=== PATIENT | female | born 1970 | race African-American/Black ===

== ENCOUNTER 2019-10-31 14:53 | Inpatient (IN) | payer OTHER ==
[2019-10-31 17:56] VITALS: BMI 23.8
--- NOTE | 2019-10-31 18:50 | HP ---
COWS - Scale Resting Pulse: 1= [place] 81-100 Sweatin= Chills/Flushing Restless Observation: 3= Extraneous Movement Pupil Size: 0= Normal to Room Light Bone or Joint Aches: 0= None Runny Nose/ Eye Tearin= Runny Nose/Eyes GI Upset > 30mins: 0= None Tremor Observation: 0= None Yawning Observation: 2= >3x During Session Anxiety or Irritability: 2=Irritable/Anxious Goose Flesh Skin: 0=Smooth Skin COWS Score: 11 CIWA Score - Admission Criteria OAS Guidelines: Admission for Medically Managed Detox: Requires at least one of the followin. CIWA greater than 12 2. Seizures within the past 24 hours 3. Delirium tremens within the past 24 hours 4. Hallucinations within the past 24 hours 5. Acute intervention needed for co occurring medical disorder 6. Acute intervention needed for co occurring psychiatric disorder 7. Severe withdrawal that cannot be handled at a lower level of care (continued vomiting, continued diarrhea, abnormal vital signs) requiring intravenous medication and/or fluids 8. Admission ROS [facility] Allergies/Adverse Reactions: Allergies Allergy/AdvReac Type Severity Reaction Status Date / Time No Known Allergies Allergy Verified 10/31/19 17:44 History of Present Illness: This report was requested by: Nori Nascimento | Reference #: [id number] Others' Prescriptions Patient Name: Rula Aguila Date: 1970 Address: [address] [place] [address] Sex: Female Rx Written Rx Dispensed Drug Quantity Days Supply Prescriber Name 05/17/2019 05/17/2019 zolpidem tartrate 10 mg tablet 30 30 Krishna Delgado MD Patient Name: Rula Aguila Date: 1970 Address: [address] [place] [address] Sex: Female Rx Written Rx Dispensed Drug Quantity Days Supply Prescriber Name 11/12/2018 01/28/2019 dronabinol 5 mg capsule 60 30 Alee Booth MD 12/28/2018 12/28/2018 zolpidem tartrate 10 mg tablet 30 30 Alee Booth MD 11/12/2018 12/08/2018 dronabinol 5 mg capsule 60 30 Alee Booth MD 11/12/2018 11/12/2018 dronabinol 5 mg capsule 60 30 Aele Booth MD 11/12/2018 11/12/2018 zolpidem tartrate 10 mg tablet 30 30 Alee Booth MD pt here requesting detox from heroin use , reports use since age 15 , longest sobriety 6 years while in residential program / penitentiary 18 years ago , in [facility] x 4 years [facility] , stopped going 2 years ago , MDD 180 mg , current daily use 4-5 bags/day via inhalation ,denies IV use, denies OD , latest use this morning prior to coming to facility cocaine : 3-4 /day via smoking, denies IV , latest use today tobacco : 10/22 ppd etoh : occasional use . PMHX : HIV + dx 26 yrs ago , CD4 " I don't think it's too good now , I was in the hospital for shingles 10/10/19 " claims compliance w/ HAART latest use 2 days ago states latest rx from Urgent Care , planning to go to clinic @ [facility] , COPD on Abuterol & Prednisione , asthma , DM 1 since age 26 Lantus 18 units hs per pt , did not bring meds, and does not recall name of pharmacy where she goes for it which is not the same pharmacy asa her other meds, thus could not be verified. depression/ anxiety denies SI / HI PSHx : C-sx , irais , ITZ partial for cervical cancer SHX : SSI , lives in SRO , denies legal issues , 3 adult children 34, 33, 20 , 7 g.k. A & W Exam Limitations: Clinical Condition - Ebola screening Have you traveled outside of the country in the last 21 days: No Have you had contact with anyone from an Ebola affected area: No - Review of Systems Constitutional: Unintentional Wgt. Loss EENT: reports: Tearing, Nose Congestion, Other (glasses , HZV R eye 10/10/19 , upper and lower dentures) Respiratory: reports: See HPI, SOB with Exertion Cardiac: reports: No Symptoms Reported GI: reports: No Symptoms Reported : reports: No Symptoms Reported Neuro: reports: No Symptoms reported Endocrine: reports: See HPI Hematology: reports: No Symptoms Reported Psychiatric: reports: Orientated x3, Agitated, Anxious, Depressed Patient History - Smoking Cessation Smoking history: Current every day smoker Have you smoked in the past 12 months: Yes Hx Chewing Tobacco Use: No Initiated information on smoking cessation: Yes 'Breaking Loose' booklet given: 10/31/19 - Substances abused Alcohol Substance route: Oral Frequency: Daily Amount used: liquor-1 pints,beer-3 can(16oz) Age of first use: 5 Date of last use: 10/31/19 Heroin Substance route: Inhalation Frequency: Daily Amount used: 5 bags Age of first use: 14 Date of last use: 10/31/19 Crack Substance route: Smoking Frequency: Daily Amount used: 6 dimes Age of first use: 15 Date of last use: 10/31/19 Admission Physical Exam BHS - Vital Signs Vital Signs: Vital Signs - 24 hr 10/31/19 17:50 Temperature 99.6 F Pulse Rate 97 H Respiratory 20 Rate Blood Pressure 117/66 - Physical General Appearance: Yes: Mild Distress, Cachetic, Thin, Anxious HEENTM: Yes: EOMI, Normocephalic, Nasal Congestion, Rhinorrhea, Muffled/Hoarse Voice, Other (upper and lower dentures) Respiratory: Yes: Chest Non-Tender, Lungs Clear, Normal Breath Sounds, No Respiratory Distress, No Accessory Muscle Use Neck: Yes: No masses,lesions,Nodules, Trachea in good position Cardiology: Yes: Regular Rhythm, Regular Rate, S1, S2, Tachycardia Abdominal: Yes: Normal Bowel Sounds, Non Tender, Soft, Other (skin folds from rapid weight loss 100 lbs in 2 mo per pt 2/2 DOM) Musculoskeletal: Yes: full range of Motion, Gait Steady Extremities: Yes: Normal Range of Motion, Non-Tender, Other (LE varicosities) Neurological: Yes: Alert, Depressed Affect Integumentary: Yes: Warm, Rash (joyce UE / LE excoriations.), Other (beard[perficial excoriations scarring, prior self- injury scars left forearm) - Diagnostic (1) Opioid dependence Current Visit: Yes Status: Chronic Qualifiers: Substance use status: in withdrawal Qualified Code(s): F11.23 - Opioid dependence with withdrawal (2) Cocaine dependence Current Visit: Yes Status: Chronic Qualifiers: Substance use status: uncomplicated Qualified Code(s): F14.20 - Cocaine dependence, uncomplicated Breathalyzer - Breathalyzer Breathalyzer: 0.021 Urine Drug Screen - Test Device Lot number: [id number] Expiration date: 05/18/21 - Control Is test valid?: Yes - Results Drug screen NEGATIVE: No Urine drug screen results: CHENCHO-Cocaine, FEN-Fentanyl, MOP-Opiates Inpatient Rehab Admission - Rehab Decision to Admit Inpatient rehab admission?: No
[2019-10-31] MEDS ORDERED: ALBUTEROL SO4 HFA INHALER IH PRN (18:57)
[2019-10-31] MEDS ORDERED: BISMUTH SUBSALICYLATE 524 MG/30 ML UD PO PRN (18:59)
[2019-10-31] MEDS ORDERED: hydrOXYzine PAMOATE 25 MG CAPSULE (FP) PO PRN (18:59)
[2019-10-31] MEDS ORDERED: ACETAMINOPHEN 325 MG TABLET (FP) PO PRN ×2 (18:59)
[2019-10-31] MEDS ORDERED: MELATONIN 5 MG TABLETS PO PRN (18:59)
[2019-10-31] MEDS ORDERED: MAG HYDROX/AL HYDROX/SIMETH 30 ML UNIT-DOSE CUP PO PRN (18:59)
[2019-10-31] MEDS ORDERED: IBUPROFEN 400 MG TABLET (FP) PO PRN (18:59)
[2019-10-31] MEDS ORDERED: MAGNESIUM HYDROX 2400MG/30ML ORAL SUSPENSION 30 ML CUP PO PRN (18:59)
[2019-10-31] MEDS ORDERED: MENTHOL/PHENOL 1 EACH UD MM PRN (18:59)
[2019-10-31] MEDS ORDERED: MAGNESIUM CITRATE 300 ML BOTTLE PO PRN (18:59)
[2019-10-31] MEDS ORDERED: cloNIDine HCL 0.1 MG TABLET PO PRN (19:00)
[2019-10-31] MEDS ORDERED: METHADONE HCL 10 MG TABLET (FOR DETOX USE ONLY) PO ONE (20:00)
[2019-10-31] MEDS: THIAMINE HCL 100 MG TABLET (FP) PO SCH (21:05)
[2019-11-01 09:48] LABS: HEMATOCRIT 32.1 % (32.4-45.2); HEMOGLOBIN 10.4 GM/dL (10.7-15.3); MCH 27.4 pg (25.7-33.7); MCHC 32.3 g/dl (32.0-36.0); MEAN CELL VOLUME 84.9 fl (80-96); MEAN PLT VOLUME 8.5 fl (7.5-11.1); PLATELET COUNT 212 K/MM3 (134-434); RBC 3.78 M/mm3 (3.60-5.2); RDW 16.2 % (11.6-15.6); WHITE BLOOD COUNT 3.5 K/mm3 (4.0-10.0)
[2019-11-01] MEDS ORDERED: METHADONE HCL 5 MG TABLET (FOR DETOX USE ONLY) PO ONE ×2 (10:00→13:15)
[2019-11-01 10:17] LABS: ALBUMIN 2.7 g/dl (3.4-5.0); BILIRUBIN,TOTAL 0.1 mg/dL (0.2-1); BLOOD UREA NITROGEN 23.7 mg/dL (7-18); CALCIUM 8.1 mg/dL (8.5-10.1); CREATININE 0.7 mg/dL (0.55-1.3); POTASSIUM 3.9 mmol/L (3.5-5.1); TOT PROT 8.2 g/dl (6.4-8.2)
[2019-11-01] MEDS: HYDROCHLOROTHIAZIDE 12.5 MG CAPSULE (FP) PO SCH (10:25)
[2019-11-01] MEDS: ENALAPRIL MALEATE 2.5 MG TABLET PO SCH (10:25)
[2019-11-01] MEDS: BICTEGRAV/EMTRICIT/TENOFOV (BIKTARVY) 50-200-25 MG TABLET PO SCH (10:25)
[2019-11-01] MEDS: PRENATAL VITAMINS W/ FOLIC ACID TABLET (FP) PO SCH (10:25)
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
[2019-11-01] MEDS: ESCITALOPRAM OXALATE 20 MG TABLET PO SCH (11:28)
--- NOTE | 2019-11-01 12:04 | PN ---
BHS COWS - Scale Resting Pulse: 1= [place] 81-100 Sweatin= Chills/Flushing Restless Observation: 1= Difficult to Sit Still Pupil Size: 0= Normal to Room Light Bone or Joint Aches: 2= Severe Diffuse Aches Runny Nose/ Eye Tearin= Runny Nose/Eyes GI Upset > 30mins: 0= None Tremor Observation of Outstretched Hands: 1= Tremor [place], Not Seen Yawning Observation: 2= >3x During Session Anxiety or Irritability: 1=Feels Anxious/Irritable Goose Flesh Skin: 0=Smooth Skin COWS Score: 11 S Progress Note (SOAP) Subjective: chills sweats irritable body aches interrupted sleep poor appetite itchy/watery eye Objective: 11/01/19 12:04 Vital Signs Temperature 97.9 F 11/01/19 05:00 Pulse Rate 82 11/01/19 05:00 Respiratory Rate 16 11/01/19 05:00 Blood Pressure 151/77 11/01/19 05:00 O2 Sat by Pulse Oximetry (%) Laboratory Tests 10/31/19 11/01/19 11/01/19 18:55 06:11 07:20 WBC 3.5 L RBC 3.78 Hgb 10.4 L Hct 32.1 L MCV 84.9 MCH 27.4 MCHC 32.3 RDW 16.2 H Plt Count 212 MPV 8.5 Sodium Potassium Chloride Carbon Dioxide Anion Gap BUN Creatinine Est GFR (CKD-EPI)AfAm Est GFR (CKD-EPI)NonAf POC Glucometer 83 Random Glucose Calcium Total Bilirubin AST ALT Alkaline Phosphatase Total Protein Albumin POC Urine HCG, Qual Negative RPR Titer 11/01/19 11/01/19 07:20 07:20 WBC RBC Hgb Hct MCV MCH MCHC RDW Plt Count MPV Sodium 136 Potassium 3.9 Chloride 105 Carbon Dioxide 30 Anion Gap 1 L BUN 23.7 H Creatinine 0.7 Est GFR (CKD-EPI)AfAm 117.91 Est GFR (CKD-EPI)NonAf 101.74 POC Glucometer Random Glucose 118 H Calcium 8.1 L Total Bilirubin 0.1 L AST 95 H ALT 84 H Alkaline Phosphatase 166 H Total Protein 8.2 Albumin 2.7 L POC Urine HCG, Qual RPR Titer Nonreactive mild anemia wbc 3.5; pt is HIV elevated BUN mild elevated liver enzymes all labs results noted aaox3 ambulating no acute distress Assessment: 11/01/19 12:06 withdrawals right eye redness, itchy pt keep rubbing/ encouraged not to rub eye; will order eye drops Plan: continue detox nephcon A ordered iron supplement ensure plus bid increase fluids repeat labs
[2019-11-01] MEDS ORDERED: METHADONE HCL 10 MG TABLET (FOR DETOX USE ONLY) PO ONE (12:44)
--- NOTE | 2019-11-01 12:44 | EKG ---
Test Reason : Blood Pressure : / mmHG Vent. Rate : 084 BPM Atrial Rate : 084 BPM P-R Int : 162 ms QRS Dur : 098 ms QT Int : 384 ms P-R-T Axes : 071 049 070 degrees QTc Int : 453 ms NORMAL SINUS RHYTHM MODERATE VOLTAGE CRITERIA FOR LVH, MAY BE NORMAL VARIANT Confirmed by MD NEY, GABI ([id number]) on 11/01/2019 12:44:18 PM Referred By: Confirmed By:GABI BREWSTER MD
--- NOTE | 2019-11-01 12:44 | PN ---
S CIWA - CIWA Score Nausea/Vomitin-No Nausea/No Vomiting Muscle Tremors: 4-Moderate,w/Arms Extend Anxiety: 4-Mod. Anxious/Guarded Agitation: 4-Moderately Restless Paroxysmal Sweats: 3 Orientation: 0-Oriented Tacttile Disturbances: 0-None Auditory Disturbances: 0-None Visual Disturbances: 0-None Headache: 0-None Present CIWA-Ar Total Score: 15 BHS Progress Note (SOAP) Subjective: I drink alot and i need something for the withdrawals the methadone dose is not enough to detox with. Objective: 11/01/19 12:42 Vital Signs Temperature 97.9 F 11/01/19 05:00 Pulse Rate 82 11/01/19 05:00 Respiratory Rate 16 11/01/19 05:00 Blood Pressure 151/77 11/01/19 05:00 O2 Sat by Pulse Oximetry (%) aaox3 ambulating no acute distress Assessment: 11/01/19 12:42 withdrawals Plan: will start pt on librium taper methadone will be increased by 5mg today therefore she will receive 20mg today, 15mg tomorrow, 10mg the following day and 5mg final dose.
[2019-11-01] MEDS ORDERED: chlordiazePOXIDE HCL 10 MG CAPSULE PO PRN (12:48)
[2019-11-01] MEDS: chlordiazePOXIDE HCL 25 MG CAPSULE PO SCH ×2 (13:25→21:24)
[2019-11-01] MEDS: NAPHAZOLINE/PHENIRAMINE OPHTHALMIC 15 ML BOTTLE OD SCH ×3 (13:27→21:23)
[2019-11-01] MEDS ORDERED: NAPHAZOLINE 0.1% OPHTHALMIC SOLUTION 15 ML BOTTLE OD SCH (14:00)
[2019-11-01] MEDS: FERROUS SO4 325 MG TABLET (FP) PO SCH (17:30)
[2019-11-01] MEDS: THIAMINE HCL 100 MG TABLET (FP) PO SCH (21:24)
[2019-11-01] MEDS ORDERED: SUVOREXANT 10 MG TABLET PO PRN (22:00)
[2019-11-02] MEDS: chlordiazePOXIDE HCL 25 MG CAPSULE PO SCH ×3 (07:24→22:47)
[2019-11-02] MEDS: FERROUS SO4 325 MG TABLET (FP) PO SCH ×3 (07:24→18:30)
[2019-11-02] MEDS ORDERED: METHADONE HCL 10 MG TABLET (FOR DETOX USE ONLY) PO ONE (10:00)
[2019-11-02] MEDS ORDERED: METHADONE HCL 5 MG TABLET (FOR DETOX USE ONLY) PO ONE (10:00)
[2019-11-02] MEDS: PRENATAL VITAMINS W/ FOLIC ACID TABLET (FP) PO SCH (10:19)
[2019-11-02] MEDS: BICTEGRAV/EMTRICIT/TENOFOV (BIKTARVY) 50-200-25 MG TABLET PO SCH (10:20)
[2019-11-02] MEDS: ESCITALOPRAM OXALATE 20 MG TABLET PO SCH (10:20)
[2019-11-02] MEDS: HYDROCHLOROTHIAZIDE 12.5 MG CAPSULE (FP) PO SCH (10:20)
[2019-11-02] MEDS: ENALAPRIL MALEATE 2.5 MG TABLET PO SCH (10:21)
[2019-11-02] MEDS: NAPHAZOLINE/PHENIRAMINE OPHTHALMIC 15 ML BOTTLE OD SCH ×4 (10:21→22:49)
--- NOTE | 2019-11-02 11:21 | PN ---
[facility] CIWA - CIWA Score Nausea/Vomitin-No Nausea/No Vomiting Muscle Tremors: 2 Anxiety: 2 Agitation: 3 Paroxysmal Sweats: 2 Orientation: 0-Oriented Tacttile Disturbances: 0-None Auditory Disturbances: 0-None Visual Disturbances: 0-None Headache: 0-None Present CIWA-Ar Total Score: 9 BHS COWS - Scale Resting Pulse: 1= [place] 81-100 Sweatin= Chills/Flushing Restless Observation: 1= Difficult to Sit Still Pupil Size: 0= Normal to Room Light Bone or Joint Aches: 1= Mild Discomfort Runny Nose/ Eye Tearin= Nasal Congestion GI Upset > 30mins: 0= None Tremor Observation of Outstretched Hands: 1= Tremor [place], Not Seen Yawning Observation: 1= 1-2x During Session Anxiety or Irritability: 2=Irritable/Anxious Goose Flesh Skin: 0=Smooth Skin COWS Score: 9 BHS Progress Note (SOAP) Subjective: sweats restless body aches interrupted sleep agitation Objective: 11/02/19 11:30 Vital Signs Temperature 97.5 F L 11/02/19 06:00 Pulse Rate 82 11/02/19 06:00 Respiratory Rate 18 11/02/19 06:00 Blood Pressure 150/85 11/02/19 06:00 O2 Sat by Pulse Oximetry (%) Laboratory Tests 10/31/19 11/01/19 11/01/19 18:55 06:11 07:20 WBC 3.5 L RBC 3.78 Hgb 10.4 L Hct 32.1 L MCV 84.9 MCH 27.4 MCHC 32.3 RDW 16.2 H Plt Count 212 MPV 8.5 Sodium Potassium Chloride Carbon Dioxide Anion Gap BUN Creatinine Est GFR (CKD-EPI)AfAm Est GFR (CKD-EPI)NonAf POC Glucometer 83 Random Glucose Calcium Total Bilirubin AST ALT Alkaline Phosphatase Total Protein Albumin POC Urine HCG, Qual Negative RPR Titer 11/01/19 11/01/19 11/01/19 07:20 07:20 16:49 WBC RBC Hgb Hct MCV MCH MCHC RDW Plt Count MPV Sodium 136 Potassium 3.9 Chloride 105 Carbon Dioxide 30 Anion Gap 1 L BUN 23.7 H Creatinine 0.7 Est GFR (CKD-EPI)AfAm 117.91 Est GFR (CKD-EPI)NonAf 101.74 POC Glucometer 123 Random Glucose 118 H Calcium 8.1 L Total Bilirubin 0.1 L AST 95 H ALT 84 H Alkaline Phosphatase 166 H Total Protein 8.2 Albumin 2.7 L POC Urine HCG, Qual RPR Titer Nonreactive 11/02/19 07:23 WBC RBC Hgb Hct MCV MCH MCHC RDW Plt Count MPV Sodium Potassium Chloride Carbon Dioxide Anion Gap BUN Creatinine Est GFR (CKD-EPI)AfAm Est GFR (CKD-EPI)NonAf POC Glucometer 105 Random Glucose Calcium Total Bilirubin AST ALT Alkaline Phosphatase Total Protein Albumin POC Urine HCG, Qual RPR Titer labs noted aaox3 ambulating no acute distress Assessment: 11/02/19 11:31 withdrawals Plan: continue detox increase fluids glucerna with meals ordered
[2019-11-02] MEDS: THIAMINE HCL 100 MG TABLET (FP) PO SCH (22:47)
[2019-11-03] MEDS ORDERED: chlordiazePOXIDE 5 MG CAPSULE PO SCH (05:00)
[2019-11-03] MEDS ORDERED: METHADONE HCL 5 MG TABLET (FOR DETOX USE ONLY) PO ONE (06:00)
[2019-11-03] MEDS: FERROUS SO4 325 MG TABLET (FP) PO SCH (07:23)
[2019-11-03] MEDS: BICTEGRAV/EMTRICIT/TENOFOV (BIKTARVY) 50-200-25 MG TABLET PO SCH (09:31)
--- NOTE | 2019-11-03 09:50 | DS ---
[facility] Detox Discharge Summary Admission Date: 10/31/19 Discharge Date: 11/03/19 - History Present History: Alcohol Dependence, Cocaine Dependence, Opioid Dependence - Physical Exam Results Vital Signs: Vital Signs Temperature 98.1 F 11/03/19 06:00 Pulse Rate 88 11/03/19 06:00 Respiratory Rate 16 11/03/19 06:00 Blood Pressure 106/64 11/03/19 06:00 O2 Sat by Pulse Oximetry (%) Pertinent Admission Physical Exam Findings: Vital Signs Temperature 98.1 F 11/03/19 06:00 Pulse Rate 88 11/03/19 06:00 Respiratory Rate 16 11/03/19 06:00 Blood Pressure 106/64 11/03/19 06:00 O2 Sat by Pulse Oximetry (%) Laboratory Tests 10/31/19 11/01/19 11/01/19 18:55 06:11 07:20 WBC 3.5 L RBC 3.78 Hgb 10.4 L Hct 32.1 L MCV 84.9 MCH 27.4 MCHC 32.3 RDW 16.2 H Plt Count 212 MPV 8.5 Sodium Potassium Chloride Carbon Dioxide Anion Gap BUN Creatinine Est GFR (CKD-EPI)AfAm Est GFR (CKD-EPI)NonAf POC Glucometer 83 Random Glucose Calcium Total Bilirubin AST ALT Alkaline Phosphatase Total Protein Albumin POC Urine HCG, Qual Negative RPR Titer 11/01/19 11/01/19 11/01/19 07:20 07:20 16:49 WBC RBC Hgb Hct MCV MCH MCHC RDW Plt Count MPV Sodium 136 Potassium 3.9 Chloride 105 Carbon Dioxide 30 Anion Gap 1 L BUN 23.7 H Creatinine 0.7 Est GFR (CKD-EPI)AfAm 117.91 Est GFR (CKD-EPI)NonAf 101.74 POC Glucometer 123 Random Glucose 118 H Calcium 8.1 L Total Bilirubin 0.1 L AST 95 H ALT 84 H Alkaline Phosphatase 166 H Total Protein 8.2 Albumin 2.7 L POC Urine HCG, Qual RPR Titer Nonreactive 11/02/19 11/02/19 11/03/19 07:23 16:30 06:18 WBC RBC Hgb Hct MCV MCH MCHC RDW Plt Count MPV Sodium Potassium Chloride Carbon Dioxide Anion Gap BUN Creatinine Est GFR (CKD-EPI)AfAm Est GFR (CKD-EPI)NonAf POC Glucometer 105 94 115 Random Glucose Calcium Total Bilirubin AST ALT Alkaline Phosphatase Total Protein Albumin POC Urine HCG, Qual RPR Titer aaox3 ambulating no acute distress - Treatment Hospital Course: Detox Protocol Followed, Detoxed Safely, Responded well, Discharged Condition Good, Rehab Referral Accepted Patient has Accepted a Rehab Referral to: pt referred to [facility] - Medication Discharge Medications: Ambulatory Orders Albuterol Sulfate Inhaler - [Ventolin Hfa Inhaler -] 2 inh PO Q6H PRN 10/31/19 Bictegrav/Emtricit/Tenofov Ala [Biktarvy 50-200-25 mg Tablet] 1 each PO DAILY Enalapril Maleate [Vasotec -] 2.5 mg PO DAILY 10/31/19 Escitalopram Oxalate [Lexapro -] 20 mg PO DAILY 10/31/19 Hydrochlorothiazide [Hctz -] 12.5 mg PO DAILY 10/31/19 Zolpidem Tartrate [Ambien] 10 mg PO HS 10/31/19 - Diagnosis (1) Cocaine dependence Current Visit: Yes Status: Chronic Qualifiers: Substance use status: uncomplicated Qualified Code(s): F14.20 - Cocaine dependence, uncomplicated (2) Substance induced mood disorder Current Visit: Yes Status: Acute (3) Substance-induced sleep disorder Current Visit: Yes Status: Acute (4) Uncomplicated opioid dependence Current Visit: Yes Status: Chronic (5) Asthma Current Visit: Yes Status: Chronic (6) COPD (chronic obstructive pulmonary disease) Current Visit: Yes Status: Chronic (7) Depressive disorder Current Visit: Yes Status: Chronic (8) Diabetes mellitus Current Visit: Yes Status: Chronic (9) HIV (human immunodeficiency virus infection) Current Visit: Yes Status: Chronic Qualifiers: HIV symptom status: unspecified Qualified Code(s): B20 - Human immunodeficiency virus [HIV] disease (10) Nicotine dependence Current Visit: Yes Status: Chronic Qualifiers: Nicotine product type: cigarettes Substance use status: uncomplicated Qualified Code(s): F17.210 - Nicotine dependence, cigarettes, uncomplicated (11) Opioid dependence Current Visit: Yes Status: Chronic Qualifiers: Substance use status: uncomplicated Qualified Code(s): F11.20 - Opioid dependence, uncomplicated (12) MDD (major depressive disorder) Current Visit: Yes Status: Ruled-out - AMA Did Patient Leave Against Medical Advice: No
[2019-11-03] MEDS ORDERED: METHADONE HCL 10 MG TABLET (FOR DETOX USE ONLY) PO ONE (10:00)
[2019-11-03 11:31] VITALS: BP 133/89; PULSE 95; TEMP 97.9
[2019-11-03 11:34] LABS: BASO % 0.5 % (0-2.0); EOS % 7.6 % (0-4.5); HEMATOCRIT 35.7 % (32.4-45.2); HEMOGLOBIN 11.5 GM/dL (10.7-15.3); LYMPH % 21.5 % (8-40); MCH 27.7 pg (25.7-33.7); MCHC 32.2 g/dl (32.0-36.0); MEAN CELL VOLUME 85.8 fl (80-96); MEAN PLT VOLUME 8.7 fl (7.5-11.1); NEUT % 58.4 % (42.8-82.8); PLATELET COUNT 206 K/MM3 (134-434); RBC 4.16 M/mm3 (3.60-5.2); RDW 15.8 % (11.6-15.6); WHITE BLOOD COUNT 3.6 K/mm3 (4.0-10.0)
[2019-11-03 11:42] LABS: ALBUMIN 2.7 g/dl (3.4-5.0); BILIRUBIN,TOTAL 0.1 mg/dL (0.2-1); BLOOD UREA NITROGEN 17.1 mg/dL (7-18); CALCIUM 8.8 mg/dL (8.5-10.1); CREATININE 0.7 mg/dL (0.55-1.3); POTASSIUM 4.6 mmol/L (3.5-5.1); TOT PROT 8.5 g/dl (6.4-8.2)
[2019-11-04] MEDS ORDERED: chlordiazePOXIDE HCL 10 MG CAPSULE PO PRN
[2019-11-04] MEDS ORDERED: chlordiazePOXIDE HCL 10 MG CAPSULE PO SCH (05:00)
[2019-11-04] MEDS ORDERED: METHADONE HCL 5 MG TABLET (FOR DETOX USE ONLY) PO ONE (06:00)
[2019-11-05] MEDS ORDERED: chlordiazePOXIDE HCL 10 MG CAPSULE PO ONE (05:00)
== END 2019-11-03 09:47 | disposition home or self-care (01) | DRG 773 ==
LOC: YASAS 14:53 → Y6N 19:31
PROVIDERS: ADMIT Allergy & Immunology; ATTEND Allergy & Immunology
PROC: HZ2ZZZZ Detoxification Services for Substance Abuse Treatment (ICD-10-PCS; principal; 2019-10-31)
DX: F10.230 Alcohol dependence with withdrawal, uncomplicated (principal); F11.20 Opioid dependence, uncomplicated; F14.20 Cocaine dependence, uncomplicated; F17.210 Nicotine dependence, cigarettes, uncomplicated; F19.282 Other psychoactive substance dependence with psychoactive substance-induced sleep disorder; F19.24 Other psychoactive substance dependence with psychoactive substance-induced mood disorder; F32.9 Major depressive disorder, single episode, unspecified; Z21 Asymptomatic human immunodeficiency virus [HIV] infection status; E11.9 Type 2 diabetes mellitus without complications; Z79.4 Long term (current) use of insulin; J44.9 Chronic obstructive pulmonary disease, unspecified; J45.998 Other asthma; H57.89 Other specified disorders of eye and adnexa; R74.8 Abnormal levels of other serum enzymes; Z85.41 Personal history of malignant neoplasm of cervix uteri; Z90.710 Acquired absence of both cervix and uterus; Z91.5 Personal history of self-harm
CPT/HCPCS: 36415; 80053; 81025; 82962; 85025; 85027; 86593; 93005; 93010